=== PATIENT | female | born 1930 | race Caucasian/White ===

== ENCOUNTER 2017-07-21 06:36 | Day surgery (SDC) | payer MEDICARE ==
[~2017-07-21] VITALS: Ht 160 cm; Wt 62.0 kg
[2017-07-21 07:20] VITALS: PULSE 55; RESP 18; TEMP 98.1; O2SAT 99
[2017-07-21 07:40] LABS: BASOPHIL % 0.6 % (0.0-2.0); EOSINOPHIL # 0.3 TH/MM3 (0-0.4); EOSINOPHIL % 6.8 % (0.0-4.0); HEMATOCRIT 38.1 % (35.0-46.0); HEMO FLAGS DIFF FINAL; LYMPH % 26.6 % (9.0-44.0); LYMPHOCYTE # 1.4 TH/MM3 (1.0-4.8); MEAN CELL VOLUME 84.4 FL (80.0-100.0); MEAN CORPUSCULAR HEMOGLOBIN 27.5 PG (27.0-34.0); MEAN CORPUSCULAR HGB CONC 32.6 % (32.0-36.0); MONO % 7.4 % (0.0-8.0); NEUT % 58.6 % (16.0-70.0); PLATELET COUNT 244 TH/MM3 (150-450); RED BLOOD COUNT 4.51 MIL/MM3 (4.00-5.30); RED CELL DISTRIBUTION WIDTH 14.9 % (11.6-17.2); WHITE BLOOD COUNT 5.2 TH/MM3 (4.0-11.0)
[2017-07-21 07:51] LABS: APTT (PATIENT) 26.9 SEC (24.3-30.1); PROTHROMBIN TIME - PATIENT 10.7 SEC (9.8-11.6)
[2017-07-21] MEDS ORDERED: VANCOMYCIN HCL 1000 MG VIAL ONE (07:57)
[2017-07-21] MEDS ORDERED: SODIUM CHLOR 0.9% 250 ML INJ 250 ML ONE (07:58)
[2017-07-21 08:14] LABS: BICARBONATE 30.6 MEQ/L (21.0-32.0); POTASSIUM 4.5 MEQ/L (3.5-5.1)
[2017-07-21] MEDS ORDERED: CELE200C PO (08:30)
[2017-07-21] MEDS ORDERED: NEXI40CA PO (08:30)
[2017-07-21] MEDS ORDERED: CENTCHW4 CHEW (08:30)
[2017-07-21] MEDS ORDERED: VITA100021 SL (08:30)
[2017-07-21] MEDS ORDERED: ROSU5 PO (08:30)
[2017-07-21] MEDS ORDERED: LISI20TA3 PO (08:30)
[2017-07-21] MEDS ORDERED: LIDOCAINE HCL 2% 50 ML VIAL ONE (08:48)
[2017-07-21] MEDS ORDERED: VANCOMYCIN 500 MG VIAL ONE ×2 (08:48→10:16)
[2017-07-21] MEDS ORDERED: MIDAZOLAM HCL 2 MG/2 ML VIAL ONE (08:59)
[2017-07-21] MEDS ORDERED: SODIUM CHLORIDE 0.9% FLUSH 10 ML FLUSH IV FLUSH PRN (09:00)
[2017-07-21] MEDS ORDERED: SODIUM CHLORIDE 0.9% FLUSH 10 ML FLUSH IV FLUSH SCH (09:00)
--- NOTE | 2017-07-21 09:42 | CATHPROC ---
goOutMap HIS Report Study Information Study Number Admission Scheduled Start Study Start [id number] Jul 21 2017 6:36AM 07/21/2017 Jul 21 2017 7:38AM [facility] Cardiac Pacer/ICD Admit Source Facility Department Other [facility] [employer] [facility] Physician and Clinical Staff Initial MD Romero, Kenny Gunner'S Mate Rito, Halima,CORINNE Other Shari Nelson,RN Recorder Chaparrita Collins,BSRN Scrub Phuong Lamb,FIELD MARKETING COORDINATOR TECH2 Procedures Performed Procedure Lead Insertion Equipment Time Dispatch Lead Description Size Mfg Part Number Used/Scraped CATHETER, BIFURCATED 07:41 [place] 5 [id number] Used INFUSION BENEPHIT MPIS-502-10.0- INTRODUCER SET, 09:05 [employer]. FR 5 SC-NT-U-SST Used MICROPUNCTURE, STIFFENED *[id number] INTRODUCER SET, FR7 PEEL- PLVN-7.0-- 08:51 COOK/PACER * Used AWAY SHEATH VAD5-CVI INTRODUCER SET, FR7 PEEL- PLVN-7.0-- 08:51 COOK/PACER * Used AWAY SHEATH VAD5-CVI TP-1103 07:41 MEDLINE INDUSTRIES SUTURE, STRIP PLUS 1/2" * Used *[id number] 07:41 MEDLINE PACER ADHESIVE, MASTISOL 2/3CC 2/3CC 0523-48 Used 07:41 MEDLINE PACER KELLER, LIMB * 2530 *[id number] Used [id number] 07:41 MEDLINE PACER PACK, PACER CUSTOM * Used *[id number] 07:41 MEDLINE PACER PEN, SKIN DUAL W/ RULER * Used *[id number] 08:58 Needle Sponge Count 2 22 Used 09:33 Needle Sponge Count 2 22 Used 09:38 Needle Sponge Count 2 22 Used 09:38 Needle Sponge Count 30 1 Used 09:33 Needle Sponge Count 30 1 Used 08:58 Needle Sponge Count 30 1 Used 08:57 Needle Sponge Count 4 4 Used 09:33 Needle Sponge Count 4 4 Used 09:38 Needle Sponge Count 4 4 Used [id number] *[id number] SUTURE, 3-0 VICRYL [SH] ([id number]) SUTURE, 4-0 MONOCRYL [PS2] (Y496G) [id number] 07:41 [facility] BLANKET,WARM AIR CCL * Used *[id number] [facility] PAD, ELECTROSURGICAL 07:41 * [id number] *[id number] Used SURGICAL GROUNDING ORANGE LEAD, CAPSURE FIX NOVUS, 4076-45CM 09:16 VITATRON MEDTRONIC 45CM Used 45CM *[id number] LEAD, CAPSURE FIX NOVUS, 4076-52CM 09:16 VITATRON MEDTRONIC 52CM Used 52CM *[id number] PACEMAKER, ADVISJoey MURPHY 09:20 VITATRON MEDTRONIC OEA-DDDR [id number] Used SURESCAN [id number] 07:41 [employer] MEDICAL BELINDA. ELECTRODE, PRO-PADZ BIPHASIC * Used *38895 Equipment Model, Serial, Lot Number and Expiration Data Description Model Number Serial Number Lot Number Expiration Date LEAD, CAPSURE FIX NOVUS, 45CM 4076-45 [id number] 01-27-2019 LEAD, CAPSURE FIX NOVUS, 52CM 4076-52 [id number] 05-12-2019 PACEMAKER, ADVISJoey MURPHY [id number] 12-11-2018 SURESCAN History: Allergies Allergy Reaction NKDA History: Risk Factors Hypertension Dyslipidemia Yes Yes Labs Hgb (g/dl) Hct (%) RBC (MIL/MM3) WBC (l/cumm) Platelets (thousands) 11.60-17.00 35.00-51.00 4.00-5.90 4.00-11.00 150.00-450.00 12.0 38 4.5 5.2 244 Glucose (mg/dl) BUN (mg/dl) Creatinine (mg/dl) BUN:Creatinine (1:x) 74.00-106.00 7.00-18.00 0.50-1.30 10.00-20.00 88 20 1.0 20 Na (meq/l) K (meq/l) Cl (meq/l) CO2 (mmol/L) Ca (mg/dl) 136.00-145.00 3.50-5.10 98.00-107.00 21.00-32.00 8.50-10.10 136 4.5 98 30.6 9.2 INR (PTT:PT) 0.90-1.10 1 Medication Medication Total Dose (Bolus/Oral) Medication Total Dosage/Unit 2% XYLOCAINE 50 mL FENTANYL 50 mcg VERSED 2 mg Medications (Bolus/Oral) Medication Time Given Dosage/Unit Administered By Reason VERSED 07/21/2017 9:01:00 AM 1 mg Shari Nelson For sedation 1 mg VERSED given in lab by Shari Nelson RN in Right Antecubital via Peripheral IV. Ordered by Kenny Morrison. Reason: For sedation. FENTANYL 07/21/2017 9:02:00 AM 50 mcg Shari Nelson For sedation 50 mcg FENTANYL given in lab by Shari Nelson RN in Right Antecubital via Peripheral IV. Ordered by Kenny Romero. Reason: For sedation. 2% XYLOCAINE 07/21/2017 9:06:58 AM 50 mL Kenny Romero As per physicians ve rbal order 50 mL 2% XYLOCAINE given in lab by Kenny Romero via Subcutaneous. Ordered by Kenny Romero. Re ason: As per physicians verbal order. VERSED 07/21/2017 9:10:00 AM 1 mg Shari Nelson For sedation 1 mg VERSED given in lab by Shari Nelson RN in Right Antecubital via Peripheral IV. Ordered by Kenny Morrison. Reason: For sedation. Medication (Drip) Medication Time Given Dosage/Unit Concentration/Unit Diluent (ml) Solution VANCOCIN 07/21/2017 8:58:51 AM 500 mg 500 mg VANCOCIN given in lab by Shari Nelson, SUSY in Right Antecubital via Peripheral IV. Ordered by Kenny Romero. Reason: As per physicians verbal order. Initial Case Assessment Cardiovascular HR NIBP Chest Pain 64 211/92 0 Edema Present Skin color Skin None Normal Warm Circulatory - Right Pulses Dorsalis Pedis 3 Scale (0,1,2,3,4,d) Circulatory - Left Pulses Dorsalis Pedis 3 Scale (0,1,2,3,4,d) Respiration - General Respiration Rate SpO2 (%) O2 (lpm) (B/min) 18 100 4 Final Case Assessment Cardiovascular HR NIBP Chest Pain 64 194/78 0 Edema Present Skin color Skin None Normal Warm Dry Neurological State Oriented to time-place- Alert Moves all extremities person Respiration - General Respiration Rate SpO2 (%) (B/min) 18 100 Chronological Log Time Study Chronological Log 8:39:55 Patient arrived via Bed. 8:39:56 Patient Name, D.O.B, / Armband Verified By R.N. 8:39:57 Consent signed by the physician and the patient and verified by the [employer] staff. 8:39:57 Pre-op and post- op instructions given; patient acknowledges understanding of instructions. 8:39:58 Verbal Stimulation=2 Physical Stimulation=2 Airway=2 Respiration=2 TOTAL=8. (0=absent, 1=li mited, 2=present) Assessment: Initial Case, HR=64 BPM, YCVY=051/92 mmhg, Chest Pain=0, Edema=None, Color=Normal, Skin = Warm Right Pulses: Ariel Ped=3 8:40:00 Left Pulses: Ariel Ped=3 Respiration: Resp=18 B/min, FqQ1=010 %, O2=4 lpm 8:40:09 Patient has been NPO for More than 6Hrs. 8:40:10 Skin Breakdown- 8:40:10 Patient Warmer Placed on the Table. 8:40:11 Disposable Defibrillator Pads Placed On Patient. 8:40:13 Frandy Prominences Protected 8:40:15 A # 20 IV was noted in the Antecubital (left). Grade = ~GRADE~ 8:40:15 A # 20 IV was noted in the Antecubital (right). Grade = ~GRADE~ 8:40:18 History and physical on the chart or being dictated. 8:48:58 Table restraints applied according to hospital policy 8:55:08 UR=291 bpm, ENNY=328/90 mmhg, SpO2=95.0 %, Resp=12 B/min, Pain=0, Jacquelyn=10, Esquivel=2 8:56:48 Left Upper Chest Prepped Times Two. 8:56:52 MD arrived. 8:57:00 Bovie ground pad applied to: right thigh 8:57:03 2% CHLORHEXIDINE GLUCONATE WASH AND NASAL SWIPE DONE PRIOR TO PROCEDURE. 8:57:05 Pre-procedure assessment data was performed with the previous procedure. First Sponge And Instrument Count Done by Chaparrita Collins BSRN. 8:57:09 Hypo's: 4, Sponges: 30, Bovie/scratch: 2 Sutures: 4, Blades: 3, Instruments: 26, Syveck Patches: 0 500 mg VANCOCIN given in lab by Shari Nelson RN in Right Antecubital via Peripheral IV. Ord ered by Nick, 8:58:51 Kenny. Reason: As per physicians verbal order. 8:59:24 HR=69 bpm, RVFH=640/95 mmhg, SpO2=97 %, Resp=16 B/min, Pain=0, Jacquelyn=10, Esquivel=2 1 mg VERSED given in lab by Shari Nelson RN in Right Antecubital via Peripheral IV. Ordered by Nick, 9:01:00 Kenny. Reason: For sedation. 50 mcg FENTANYL given in lab by Shari Nelson RN in Right Antecubital via Peripheral IV. Ord ered by Nick, 9:02:00 Kenny. Reason: For sedation. 9:04:29 CK=574 bpm, VFOB=001/92 mmhg, SpO2=97.0 %, Resp=21 B/min 9:05:06 FJ=288 bpm, UKJJ=876/92 mmhg, SpO2=99 %, Resp=16 B/min, Pain=0, Jacquelyn=10, Esquivel=2 Time Out. Correct patient, procedure, procedure equipment, site and side verified with physician present. Time 9:06:11 concurred by MD, individual staff and SR. PRICING ANALYST. Time Out #2 - Consents verified, patient in correct position, all results are labled and display ed, safety precautions 9:06:24 taken, antibiotics administered. Time out concurred by MD, individual staff and SR. PRICING ANALYST in procedur e 9:06:30 Case Start 50 mL 2% XYLOCAINE given in lab by Kenny Romero via Subcutaneous. Ordered by Alonzo Romero Reason: As 9:06:58 per physicians verbal order. 9:08:55 Surgical Incision Made. 9:09:43 HR=85 bpm, ZHGF=259/73 mmhg, EaZ0=877 %, Resp=14 B/min, Pain=0, Jacquelyn=10, Esquivel=2 1 mg VERSED given in lab by Shari Nelson RN in Right Antecubital via Peripheral IV. Ordered by Nick, 9:10:00 Kenny. Reason: For sedation. 9:12:15 Vascular access was obtained in the Subclav. Vein (Lft. 9:15:01 Vascular access was obtained in the Subclav. Vein (Lft. A INTRODUCER SET, FR7 PEEL-AWAY SHEATH * was advanced into the Subclav. Vein (Lft using the Perc utaneous 9:15:08 technique. 9:15:10 HR=55 bpm, COTW=534/69 mmhg, EiE9=255.0 %, Resp=9 B/min, Pain=0, Jacquelyn=10, Esquivel=2 9:15:32 A LEAD, CAPSURE FIX NOVUS, 52CM 52CM was inserted and positioned in the RV. 9:16:16 Lead placement verified under fluoroscopy 9:16:18 The RV lead impedance and threshold being tested. 9:16:20 The RV lead was sutured to the fascia. A INTRODUCER SET, FR7 PEEL-AWAY SHEATH * was advanced into the Subclav. Vein (Lft using the Perc utaneous 9:17:26 technique. 9:17:52 A LEAD, CAPSURE FIX NOVUS, 45CM 45CM was inserted and positioned in the RA. 9:18:22 Lead placement verified under fluoroscopy 9:21:33 HR=59 bpm, LMCA=783/78 mmhg, ZgT7=993 %, Resp=12 B/min 9:25:08 HR=95 bpm, PJCF=610/82 mmhg, SpO2=98.0 %, Resp=14 B/min 9:26:09 RA lead repositioned by 9:28:04 The Atrial lead impedance and threshold is being tested. 9:30:14 HR=79 bpm, GIIX=312/81 mmhg, AkN9=736.0 %, Resp=9 B/min, Pain=0, Jacquelyn=10, Esquivel=2 9:30:40 The Atrial lead was sutured to the fascia. 9:31:46 Pocket flushed with antibiotic solution 9:31:48 A PACEMAKER, ADVISA DR KATHERINE BERUMEN OEA-DDDR was connected and placed in the pocket. Second Sponge And Instrument Count Done by Halima Veras, CORINNE. 9:32:50 Hypo's: 4, Sponges: 30, Bovie/scratch: 2 Sutures: ~SUTURE~, Blades: 3, Instruments: ~INSTRU~, Syveck Patches: ~SYVECK PATCH~ one suture a dded 9:34:32 HR=68 bpm, XASA=247/81 mmhg, UcB5=572.0 %, Resp=13 B/min, Pain=0, Jacquelyn=10, Esquivel=2 9:35:30 The pocket was closed. 9:35:34 Implant Procedure was performed. 9:35:45 A PPM Implant . (Dual) 9:35:59 Bedside Report will be given. 9:36:58 Steri-strips and a sterile dressing applied to site. 9:37:02 A sling was placed on the affected arm. The Final Sponge And Instrument Count Done by Halima Veras RCIS. 9:37:47 Hypo's: 4, Sponges: 30, Bovie/scratch: 2 Sutures: 5, Blades: 3, Instruments: 26, Syveck Patches: 0 Assessment: Final Case, HR=64 BPM, DMBO=969/78 mmhg, Chest Pain=0, Edema=None, Color=Normal, Ski n = Warm, Dry 9:38:52 Neurological: State=Alert, Ox3, [place] Respiration: Resp=18 B/min, ZzF1=654 % 9:39:35 HR=62 bpm, FMYL=226/78 mmhg, FvC5=165.0 %, Resp=12 B/min, Pain=0, Jacquelyn=10, Esquivel=2 9:40:00 No case complications noted. 9:40:07 Cine recording checked. 9:40:12 Holding Area notified of successful intervention. 9:40:17 Implantable Device card placed in patient's chart. 9:40:19 Defibrillator and ground pads removed. Skin intact. 9:40:25 Case End 9:41:38 Vitals capture stopped. 9:50:00 Patient moved to [facility] and transported to [facility] in stable condition. End Study - Contrast Media Used In Study Contrast Total Opened (mL) Total Used (mL) Total Wasted (mL) Unspecified 0 0 0 End Study - Maximum Contrast Load Max Contrast Load (mL) 310.0 End Study - Radiation Exposure Fluoro Time (minutes) 5.9 End Study - Patient Disposition Complications Transferred To Interventional Outcome No Telemetry Bed successful
--- NOTE | 2017-07-21 10:42 | RADRPT ---
EXAM DATE/TIME: 07/21/2017 10:23 [place] COMPARISON: No previous studies available for comparison. INDICATIONS : Post pacemaker insertion MEDICAL HISTORY : None. SURGICAL HISTORY : Pacemaker. ENCOUNTER: Initial ACUITY: 1 day PAIN SCORE: 0/10 LOCATION: chest FINDINGS: The heart is enlarged there is a transvenous pacer in good position. There is diffuse interstitial pr ominence suggesting mild interstitial edema versus chronic interstitial changes The visualized bony s tructures appear grossly intact. CONCLUSION: 1. Diffuse interstitial changes suggesting possible mild interstitial edema. No pneumothorax identifi ed following pacer placement. Piotr Liu MD on July 21, 2017 at 10:39 Board Certified Radiologist. This report was verified electronically.
--- NOTE | 2017-07-21 11:14 | EKG ---
Date Performed: 07/21/2017 Time Performed: 07:47:48 PTAGE: 87 years EKG: Sinus bradycardia Borderline ECG PREVIOUS TRACING : 03/03/2005 09.26 No significant change from previous tracing noted. DOCTOR: Mat Nielsen Interpretating Date/Time 07/21/2017 11:12:09
[2017-07-21] MEDS ORDERED: POVIDONE IODINE 5% (ANTISEPSIS KIT) 4 APPLICATIONS EACH NARE SCH (11:30)
[2017-07-21] MEDS ORDERED: MUPIROCIN 2% OINT 1 APPLIC/GM SYR NASAL SCH (11:30)
[2017-07-21] MEDS ORDERED: CHLORHEXIDINE GLUCONATE 2 % 1 PACK (2 CLOTHS) TOPICAL SCH (11:30)
--- NOTE | 2017-07-22 11:42 | EKG ---
Date Performed: 07/21/2017 Time Performed: 11:43:36 PTAGE: 87 years EKG: Sinus rhythm Poor R wave progression Abnormal ECG PREVIOUS TRACING : 07/21/2017 07.47 DOCTOR: Matti Guerrero Interpretating Date/Time 07/22/2017 11:40:13
--- NOTE | 2017-08-17 10:55 | MP ---
cc: KENNY CORRIGAN M.D. DATE OF SURGERY 07/21/2017 INDICATION FOR THE PROCEDURE Symptomatic bradycardia, sinus node dysfunction. SURGEON Kenny Corrigan MD ANESTHESIA Fentanyl and Versed ESTIMATED BLOOD LOSS None COMPLICATIONS None APPROACH Upper left chest EQUIPMENT Medtronic dual-chamber ICD PROCEDURAL STATEMENTS The patient was brought to the EP lab where the upper left chest area was prepped and draped in the usual sterile fashion. The skin was anesthetized with 1% Xylocaine. A pacemaker pocket was fashioned in the upper left chest area with both blunt and sharp dissection being controlled with electrocautery. Using two tear-away sheaths, active fixation atrial and ventricular pacing leads were positioned in the right atrium and ventricle respectively. Thresholds measured and found to be acceptable. The leads were connected to the dual-chamber Medtronic pacemaker. The deep tissues checked for dryness, closed with 3-0 Vicryl, skin closed with 4-0 Monocryl in a running subcuticular fashion. Pressures dressing applied to the wound. The patient returned to her room in stable condition. MD MAGALIE Painting/NAMRATA /10:29 AM /10:40 AM
== END 2017-07-21 13:02 | disposition home or self-care (01) ==
LOC: HDOC 06:36 → HDIC 06:38 → HDOC 13:02
PROVIDERS: ATTEND Internal Medicine Cardiovascular Disease
DX: I49.5 Sick sinus syndrome (principal); I10 Essential (primary) hypertension; E78.00 Pure hypercholesterolemia, unspecified; K21.9 Gastro-esophageal reflux disease without esophagitis; J45.909 Unspecified asthma, uncomplicated; R94.31 Abnormal electrocardiogram [ECG] [EKG]; R60.0 Localized edema; Z87.891 Personal history of nicotine dependence; Z01.810 Encounter for preprocedural cardiovascular examination; Z01.818 Encounter for other preprocedural examination
CPT/HCPCS: 33208; 71010; 80048; 85025; 85610; 85730; 93005; C1785; C1898; J2250; J3010; J3370; J7050